=== PATIENT | male | born 1960 | race African-American/Black ===

== ENCOUNTER 2018-09-29 10:43 | Outpatient (CLI) | payer BC, OTHER ==
[~2018-09-29 10:43] MED LIST: CYCL-259 PO; DIAZ5TAB PO; DOCU-180 PO; GABA600T7 PO; HYDR2TAB40 PO; METH4TAB2 PO; METH750T2 PO; OXYC-307 PO; OXYC1TAB7 PO; OXYC1TAB8 PO; SENN1TAB94 PO; [UNRECOGNIZED DRUG - CODE] PO
[2018-09-29] MEDS ORDERED: MELO15TA24 PO (11:08)
[2018-09-29] MEDS ORDERED: BUPR1FIL3 SL (11:08)
== END 2018-09-29 23:59 | disposition home or self-care (01) ==
LOC: STAR 10:43
PROVIDERS: ATTEND Otolaryngology
DX: Z02.9 Encounter for administrative examinations, unspecified (principal)

== ENCOUNTER 2018-10-04 05:45 | Day surgery (SDC) | payer BC, OTHER ==
[~2018-10-04] VITALS: Ht 175.3 cm; Wt 70.5 kg
[~2018-10-04 05:45] MED LIST changes: +BUPR1FIL3 SL; +MELO15TA24 PO
[2018-10-04] MEDS ORDERED: LACTATED RINGERS 1,000 ML IV SCH (06:14)
[2018-10-04 06:16] VITALS: BP 99/66
[2018-10-04] MEDS ORDERED: OXYMETAZOLINE NASAL SPRAY 0.05%, 15ML ONE (06:58)
[2018-10-04] MEDS ORDERED: MIDAZOLAM 1 MG/ML, 2ML ONE (07:13)
[2018-10-04] MEDS ORDERED: FENTANYL PF 100 MCG/2ML ONE (07:13)
[2018-10-04] MEDS ORDERED: PROPOFOL 10 MG/ML, 20ML ONE (07:42)
[2018-10-04] MEDS ORDERED: DEXAMETHASONE 4 MG/ML, 1ML ONE (07:42)
[2018-10-04] MEDS ORDERED: CEFAZOLIN 1,000 MG ONE (07:42)
[2018-10-04] MEDS ORDERED: ONDANSETRON 2MG/ML, 2ML ONE (07:42)
[2018-10-04] MEDS ORDERED: SUCCINYLCHOLINE 20 MG/ML, 10ML ONE (07:42)
[2018-10-04] MEDS ORDERED: hydrALAzine 20 MG/ML, 1ML IV PRN (08:30)
[2018-10-04] MEDS ORDERED: METOCLOPRAMIDE 5 MG/ML, 2ML IV PRN (08:30)
[2018-10-04] MEDS ORDERED: ONDANSETRON 2MG/ML, 2ML IVPush PRN (08:30)
[2018-10-04] MEDS ORDERED: PROMETHAZINE 25 MG/ML, 1ML IV PRN (08:30)
[2018-10-04] MEDS ORDERED: KETOROLAC 30 MG/1 ML IV PRN (08:30)
[2018-10-04] MEDS ORDERED: FENTANYL PF 100 MCG/2ML IV PRN (08:30)
[2018-10-04] MEDS ORDERED: HYDROmorphone 1 MG/ML, 1ML INJ IV PRN (08:30)
[2018-10-04] MEDS ORDERED: MEPERIDINE/PF 25MG/0.5ML IVPush PRN (08:30)
[2018-10-04] MEDS ORDERED: ALBUTEROL SULFATE 2.5 MG/3 ML NPPB PRN (08:30)
[2018-10-04] MEDS ORDERED: OXYcodone 5 MG/5 ML ORAL.SOL UDC PO PRN (08:30)
[2018-10-04] MEDS ORDERED: LABETALOL 5MG/ML, 20ML IV PRN (08:30)
[2018-10-04] MEDS ORDERED: ACETAMINOPHEN 650 MG/20.3 ML UDC PO PRN (09:00)
[2018-10-04] MEDS ORDERED: ACETAMINOPHEN 650 MG/20.3 ML UDC ONE (09:04)
[2018-10-04] MEDS ORDERED: OXYcodone 5 MG/5 ML ORAL.SOL UDC ONE (09:06)
== END 2018-10-04 10:40 | disposition home or self-care (01) ==
LOC: OUT 05:45
PROVIDERS: ATTEND Otolaryngology
DX: D02.0 Carcinoma in situ of larynx (principal); J38.3 Other diseases of vocal cords; F15.90 Other stimulant use, unspecified, uncomplicated; Z98.890 Other specified postprocedural states
CPT/HCPCS: 31536; 88305; J0330; J0690; J1100; J2250; J2405; J2704; J3010; J7120

== ENCOUNTER → 2020-01-19 | Outpatient (CLI) | payer OTHER ==
[2020-01-19 10:18] LABS: BASOPHILS # (AUTO) 0.05 x10^3/uL (0-0.1); BASOPHILS % (AUTO) 1 % (0-1); EOSINOPHILS # (AUTO) 0.17 x10^3/uL (0-0.4); EOSINOPHILS % (AUTO) 2 % (1-7); LYMPHOCYTES # (AUTO) 2.05 x10^3/uL (1-3.4); LYMPHOCYTES % (AUTO) 19 % (22-44); MD NO; MEAN CORPUSCULAR HEMOGLOBIN 29.6 pg (27.5-34.5); MEAN CORPUSCULAR HGB CONC 33.3 g/dL (33.2-36.2); MEAN CORPUSCULAR VOLUME 88.8 fL (81-97); MEAN PLATELET VOLUME 7.9 fL (7.4-10.4); MONOCYTES # (AUTO) 0.33 x10^3/uL (0.2-0.8); MONOCYTES % (AUTO) 3 % (2-9); NEUTROPHILS # (AUTO) 8.02 x10^3/uL (1.8-6.8); NEUTROPHILS % (AUTO) 76 % (42-75); PLATELET COUNT 281 x10^3/uL (130-400); RED CELL DISTRIBUTION WIDTH 13.7 % (9.4-14.8)
[2020-01-19 10:25] LABS: INTERNATIONAL NORMALIZED RATIO 1.06 (0.93-1.1); PROTHROMBIN TIME 10.9 Seconds (9.6-11.5)
[2020-01-19 10:28] LABS: ANION GAP 3 mmol/L (5-15); CALCIUM 8.7 mg/dL (8.5-10.1); CHLORIDE 106 mmol/L (98-107)
[2020-01-19 10:29] LABS: CREATININE 1.04 mg/dL (0.7-1.3)
== END | disposition home or self-care (01) ==
LOC: STAR 07:41
PROVIDERS: ATTEND Neurological Surgery
DX: Z01.818 Encounter for other preprocedural examination (principal); M51.37 Other intervertebral disc degeneration, lumbosacral region; M48.061 Spinal stenosis, lumbar region without neurogenic claudication; J98.4 Other disorders of lung; M25.78 Osteophyte, vertebrae; R00.1 Bradycardia, unspecified; R94.31 Abnormal electrocardiogram [ECG] [EKG]
CPT/HCPCS: 36415; 71046; 72110; 80048; 85025; 85610; 85730; 93005

== ENCOUNTER → 2020-01-26 | Outpatient (CLI) | payer OTHER | END | disposition home or self-care (01) | LOC: STAR 13:33 | PROVIDERS: ATTEND Anesthesiology | DX: Z01.812 Encounter for preprocedural laboratory examination (principal); Z20.828 Contact with and (suspected) exposure to other viral communicable diseases | CPT/HCPCS: 36415; 87635 ==

== ENCOUNTER 2020-02-01 08:13 | Inpatient (IN) | payer OTHER ==
[~2020-02-01] VITALS: Ht 175.3 cm; Wt 76.4 kg
[~2020-02-01 08:13] MED LIST changes: +BACITRACIN 50,000 UNIT ONE; +BUPIVACAINE/EPI 0.5% 1:200K ONE; +VANCOMYCIN 1,000 MG ONE
[2020-02-01] MEDS ORDERED: LACTATED RINGERS 1,000 ML IV SCH (08:38)
[2020-02-01] MEDS ORDERED: CHLORHEXIDINE 15 ML UDC MM STA (08:39)
[2020-02-01] MEDS ORDERED: MIDAZOLAM 1 MG/ML, 2ML ONE (10:28)
[2020-02-01] MEDS ORDERED: FENTANYL PF 250 MCG/5ML ONE (10:29)
[2020-02-01] MEDS ORDERED: KETAMINE 10 MG/ML, 20ML ONE (11:19)
[2020-02-01] MEDS ORDERED: DEXAMETHASONE 4 MG/ML, 1ML ONE (11:20)
[2020-02-01] MEDS ORDERED: CEFAZOLIN 1,000 MG ONE ×2 (11:32)
[2020-02-01] MEDS ORDERED: ACETAMINOPHEN 325 MG TABLET PO PRN (12:00)
[2020-02-01] MEDS ORDERED: PROMETHAZINE 25 MG/ML, 1ML IVPush PRN (12:00)
[2020-02-01] MEDS ORDERED: MEPERIDINE/PF 25MG/0.5ML IVPush PRN (12:00)
[2020-02-01] MEDS ORDERED: LABETALOL 5MG/ML, 20ML IV PRN (12:00)
[2020-02-01] MEDS ORDERED: hydrALAzine 20 MG/ML, 1ML IV PRN (12:00)
[2020-02-01] MEDS ORDERED: ONDANSETRON 2MG/ML, 2ML IVPush PRN (12:00)
[2020-02-01] MEDS ORDERED: DIAZEPAM 5 MG/ML, 2ML IVPush PRN (12:00)
[2020-02-01] MEDS ORDERED: METHOCARBAMOL 1,000 MG in DEXTROSE 5% 100 ML IV PRN (12:00)
[2020-02-01] MEDS ORDERED: OXYcodone 5 MG/5 ML ORAL.SOL UDC PO PRN (12:00)
[2020-02-01] MEDS ORDERED: BUPIVACAINE/PF 0.25% INFIL ONE (12:01)
[2020-02-01] MEDS ORDERED: PROPOFOL 10 MG/ML, 20ML ONE (12:56)
[2020-02-01] MEDS ORDERED: ONDANSETRON 2MG/ML, 2ML ONE (12:56)
[2020-02-01] MEDS ORDERED: FENTANYL PF 100 MCG/2ML ONE (13:46)
[2020-02-01] MEDS ORDERED: OXYcodone 5 MG/5 ML ORAL.SOL UDC ONE (13:46)
[2020-02-01] MEDS: FENTANYL PF 100 MCG/2ML IV PRN ×2 (13:50→13:55)
[2020-02-01] MEDS ORDERED: HYDROmorphone 1 MG/ML, 1ML INJ ONE ×2 (13:56→14:12)
[2020-02-01] MEDS: HYDROmorphone 1 MG/ML, 1ML INJ IVPush PRN ×4 (14:00→14:25)
[2020-02-01] MEDS ORDERED: PROMETHAZINE 25 MG/ML, 1ML IM PRN (16:00)
[2020-02-01] MEDS ORDERED: MAGNESIUM HYDROXIDE 8%, 30ML UDC PO PRN (16:00)
[2020-02-01] MEDS ORDERED: SODIUM CHLORIDE 0.9% 1,000ML IV PRN (16:00)
[2020-02-01] MEDS ORDERED: ONDANSETRON 2MG/ML, 2ML IV PRN (16:00)
[2020-02-01] MEDS ORDERED: DIPHENHYDRAMINE 50 MG/ML, 1ML IM PRN (16:00)
[2020-02-01] MEDS ORDERED: BISACODYL 10 MG SUPP PR PRN (16:00)
[2020-02-01] MEDS ORDERED: DIPHENHYDRAMINE 25 MG CAPSULE PO PRN (16:00)
[2020-02-01] MEDS ORDERED: METHOCARBAMOL 1,000 MG in DEXTROSE 5% 100 ML IV ONE (16:00)
[2020-02-01] MEDS ORDERED: TIZANIDINE 4MG TABLET PO PRN (16:30)
[2020-02-01] MEDS ORDERED: DIPHENHYDRAMINE 50 MG/ML, 1ML IVPush PRN (16:30)
[2020-02-01] MEDS: OXYcodone IR 5MG TABLET PO PRN ×2 (17:37→20:44)
[2020-02-01] MEDS: NS + 20MEQ KCL 1,000 ML IV SCH (17:37)
[2020-02-01 18:40] VITALS: BP 108/74
[2020-02-01] MEDS: morphine SULFATE 10 MG/ML, 1ML IV PRN ×2 (18:40→22:56)
[2020-02-01] MEDS: GABAPENTIN 400 MG CAPSULE PO SCH (20:44)
[2020-02-01] MEDS ORDERED: METHOCARBAMOL 750 MG in DEXTROSE 5% 100 ML IV SCH (22:00)
[2020-02-01] MEDS: CEFAZOLIN PMX 1GM/50ML 50 ML IVPB SCH (22:10)
[2020-02-01] MEDS: METHOCARBAMOL 750 MG in DEXTROSE 5% 100 ML IV SCH (23:25)
[2020-02-02] VITALS: BP 100/66
[2020-02-02] MEDS: OXYcodone IR 5MG TABLET PO PRN ×6 (01:12→20:57)
[2020-02-02] MEDS: NS + 20MEQ KCL 1,000 ML IV SCH ×3 (01:17→22:00)
[2020-02-02 03:50] VITALS: BP 91/59
[2020-02-02] MEDS: CEFAZOLIN PMX 1GM/50ML 50 ML IVPB SCH (05:43)
[2020-02-02] MEDS: GABAPENTIN 400 MG CAPSULE PO SCH ×4 (05:43→20:51)
[2020-02-02] MEDS: METHOCARBAMOL 750 MG in DEXTROSE 5% 100 ML IV SCH (06:32)
[2020-02-02 06:55] VITALS: BP 100/72
[2020-02-02] MEDS: SENNA/DOCUSATE TABLET PO SCH (08:17)
[2020-02-02 14:26] VITALS: BP 98/64
[2020-02-02] MEDS ORDERED: TIZA4TAB9 PO (18:11)
[2020-02-02 19:57] VITALS: BP 104/69
[2020-02-03] MEDS: OXYcodone IR 5MG TABLET PO PRN ×4 (00:30→21:08)
[2020-02-03 00:36] VITALS: BP 100/61
[2020-02-03 07:04] VITALS: BP 107/60
[2020-02-03] MEDS: GABAPENTIN 400 MG CAPSULE PO SCH ×4 (07:59→21:07)
[2020-02-03] MEDS: NS + 20MEQ KCL 1,000 ML IV SCH ×2 (08:00→17:26)
[2020-02-03] MEDS: TIZANIDINE 4MG TABLET PO SCH ×2 (08:45→16:23)
[2020-02-03] MEDS: SENNA/DOCUSATE TABLET PO SCH (12:25)
[2020-02-03 13:18] VITALS: BP 75/53
[2020-02-03 13:40] VITALS: BP 84/54
[2020-02-03] MEDS ORDERED: SODIUM CHLORIDE 0.9% 1,000 ML IV SCH (14:10)
[2020-02-03] MEDS: ACETAMINOPHEN 500 MG TABLET PO SCH ×3 (14:29→21:07)
[2020-02-03 14:30] LABS: BASOPHILS # (AUTO) 0.03 x10^3/uL (0-0.1); BASOPHILS % (AUTO) 0 % (0-1); EOSINOPHILS # (AUTO) 0.03 x10^3/uL (0-0.4); EOSINOPHILS % (AUTO) 0 % (1-7); LYMPHOCYTES # (AUTO) 3.11 x10^3/uL (1-3.4); LYMPHOCYTES % (AUTO) 26 % (22-44); MD NO; MEAN CORPUSCULAR HEMOGLOBIN 28.7 pg (27.5-34.5); MEAN CORPUSCULAR HGB CONC 32.1 g/dL (33.2-36.2); MEAN CORPUSCULAR VOLUME 89.4 fL (81-97); MEAN PLATELET VOLUME 7.2 fL (7.4-10.4); MONOCYTES % (AUTO) 9 % (2-9); NEUTROPHILS # (AUTO) 7.85 x10^3/uL (1.8-6.8); NEUTROPHILS % (AUTO) 65 % (42-75); PLATELET COUNT 277 x10^3/uL (130-400); RED CELL DISTRIBUTION WIDTH 14.2 % (9.4-14.8)
[2020-02-03 14:41] LABS: ANION GAP 6 mmol/L (5-15); CALCIUM 8.6 mg/dL (8.5-10.1); CHLORIDE 102 mmol/L (98-107); CREATININE 1.37 mg/dL (0.7-1.3)
[2020-02-03 21:15] VITALS: BP 94/64
[2020-02-04] VITALS (12 sets, daily range): BP systolic 66–114; BP diastolic 37–84
[2020-02-04] MEDS: OXYcodone IR 5MG TABLET PO PRN ×4 (00:38→20:42)
[2020-02-04] MEDS: NS + 20MEQ KCL 1,000 ML IV SCH ×2 (01:06→18:35)
[2020-02-04] MEDS: TIZANIDINE 4MG TABLET PO SCH ×2 (02:27→10:44)
[2020-02-04] MEDS: ACETAMINOPHEN 500 MG TABLET PO SCH ×4 (02:27→20:42)
[2020-02-04] MEDS: GABAPENTIN 400 MG CAPSULE PO SCH ×4 (06:08→20:42)
[2020-02-04] MEDS ORDERED: SODIUM CHLORIDE 0.9% 1,000 ML IV SCH (06:40)
[2020-02-04] MEDS ORDERED: OXYcodone ORAL.CONC 20 MG/ML PO PRN (07:30)
[2020-02-04] MEDS ORDERED: GABA-827 PO (07:41)
[2020-02-04] MEDS ORDERED: OXYcodone IR 5MG TABLET ONE (10:39)
[2020-02-04] MEDS: SENNA/DOCUSATE TABLET PO SCH (10:44)
[2020-02-04] MEDS: SODIUM CHLORIDE 1 GM TABLET PO SCH ×3 (14:21→20:42)
[2020-02-05 00:48] VITALS: BP 114/77
[2020-02-05] MEDS: OXYcodone IR 5MG TABLET PO PRN ×3 (00:54→09:01)
[2020-02-05] MEDS: ACETAMINOPHEN 500 MG TABLET PO SCH ×2 (02:38→09:01)
[2020-02-05] MEDS: NS + 20MEQ KCL 1,000 ML IV SCH (02:38)
[2020-02-05 05:00] VITALS: BP 127/88
[2020-02-05] MEDS: GABAPENTIN 400 MG CAPSULE PO SCH (06:11)
[2020-02-05 08:11] VITALS: BP 118/85
[2020-02-05 09:00] VITALS: BP 116/79
[2020-02-05] MEDS: SODIUM CHLORIDE 1 GM TABLET PO SCH (09:01)
[2020-02-05] MEDS: SENNA/DOCUSATE TABLET PO SCH (09:01)
[2020-02-05] MEDS ORDERED: SODI1TAB PO (09:19)
[2020-02-05] MEDS ORDERED: GABA800T5 PO (09:50)
== END 2020-02-05 11:15 | disposition home or self-care (01) | DRG 517 ==
LOC: OUT 08:13 → 4NE 14:54 → OUT 22:52 → 4NE 22:53 → OBSVTOIN 22:53 → DCLOUNGE 02-05 11:10
PROVIDERS: ADMIT Neurological Surgery; ATTEND Neurological Surgery
PROC: 01NR0ZZ Release Sacral Nerve, Open Approach (ICD-10-PCS; 2020-02-01)
PROC: 01NB0ZZ Release Lumbar Nerve, Open Approach (ICD-10-PCS; principal; 2020-02-01 11:00)
DX: M48.062 Spinal stenosis, lumbar region with neurogenic claudication (principal); G89.29 Other chronic pain; I95.1 Orthostatic hypotension; Z87.891 Personal history of nicotine dependence; Z82.61 Family history of arthritis; Z80.9 Family history of malignant neoplasm, unspecified
CPT/HCPCS: 36415; 71045; 72100; 80048; 85025; 93005; G0378; J0690; J1100; J1170; J2250; J2405; J2704; J3010; J3370; J3480; J3490; J2270; J2800; J7030